=== PATIENT | female | born 1995 | race Caucasian/White ===

== ENCOUNTER 2020-04-20 11:04 | Day surgery (SDC) | payer OTHER ==
[~2020-04-20] VITALS: Ht 170.2 cm; Wt 98.8 kg
--- NOTE | 2020-04-20 11:45 | NUR ---
PT AMBULATORY TO ROOM 15 W/ C/O PELVIC ABD PAIN STARTED TODAY AT 0400. PT ALSO STATES SHE HAD R FLANK PAIN YESTERDAY. PT NOTED TO HAVE LLQ ABD PAIN W/ PALPATION. +NAUSEA. DENIES EMESIS. PT DENIES ANY URINARY SX. PT RESTING ON GURNEY. NADN. MONITORS APPLIED. ROEL COWAN AT BEDSIDE.
[2020-04-20] MEDS ORDERED: ONDANSETRON 2MG/ML, 2ML ONE ×2 (11:53→18:49)
[2020-04-20] MEDS ORDERED: MORPHINE SULFATE 4 MG/ML, 1ML ONE ×2 (11:53→13:10)
[2020-04-20] MEDS: MORPHINE SULFATE 4 MG/ML, 1ML IVPush PRN ×2 (11:56→13:11)
[2020-04-20] MEDS ORDERED: ONDANSETRON 2MG/ML, 2ML IVPush ONE (12:00)
[2020-04-20] MEDS ORDERED: SODIUM CHLORIDE FLUSH 10ML SYR IVF ONE (12:00)
--- NOTE | 2020-04-20 12:05 | NUR ---
[facility] V[facility]. MEDICATED PER OCT.
[2020-04-20 12:15] LABS: BASOPHILS # (AUTO) 0.02 x10^3/uL (0-0.1); BASOPHILS % (AUTO) 0 % (0-1); EOSINOPHILS # (AUTO) 0.14 x10^3/uL (0-0.4); EOSINOPHILS % (AUTO) 1 % (1-7); LYMPHOCYTES # (AUTO) 2.62 x10^3/uL (1-3.4); LYMPHOCYTES % (AUTO) 16 % (22-44); MD NO; MEAN CORPUSCULAR HEMOGLOBIN 27.3 pg (27.0-34.8); MEAN CORPUSCULAR HGB CONC 33.1 g/dL (32.4-35.8); MEAN CORPUSCULAR VOLUME 82.7 fL (80-100); MEAN PLATELET VOLUME 9.4 fL (7.4-10.4); MONOCYTES # (AUTO) 0.92 x10^3/uL (0.2-0.8); MONOCYTES % (AUTO) 6 % (2-9); NEUTROPHILS # (AUTO) 12.22 x10^3/uL (1.8-6.8); NEUTROPHILS % (AUTO) 77 % (42-75); PLATELET COUNT 327 x10^3/uL (130-400); RED CELL DISTRIBUTION WIDTH 14.9 % (9.6-15.2)
[2020-04-20 12:26] LABS: ALBUMIN 3.8 g/dL (3.4-5.0); ANION GAP 9 mmol/L (5-15); CALCIUM 9.6 mg/dL (8.5-10.1); CHLORIDE 108 mmol/L (98-107)
[2020-04-20 12:31] LABS: ALANINE AMINOTRANSFERASE 20 U/L (12-78); ALKALINE PHOSPHATASE 89 U/L (45-117); BILIRUBIN,TOTAL 0.4 mg/dL (0.2-1.0); CREATININE 0.77 mg/dL (0.55-1.02)
[2020-04-20 12:31] LABS: MICROSCOPIC NOT IND
[2020-04-20] MEDS ORDERED: OMNIPAQUE 350 MG/ML, 100ML BOTTLE ONE (12:45)
--- NOTE | 2020-04-20 13:01 | NUR ---
PT RESTING ON GURNEY. NADN. [place].
--- NOTE | 2020-04-20 13:12 | NUR ---
BREAK RN: PT RTD FROM CT AND REQUESTS PAIN MED. VSS, PT MED NOTED FOR PAIN
--- NOTE | 2020-04-20 13:14 | NUR ---
BREAK RN; CALL LIGHT W/I REACH.
[2020-04-20] MEDS ORDERED: CEFOTETAN PMX 2GM/50ML 50 ML IV ONE (14:00)
--- NOTE | 2020-04-20 14:17 | NUR ---
JANE LESLIE: MARIZA ZULUAGA RN. Addendum: 04/20/20 at 1437 by ANGEL CHARTED BY Emilie CHINO RN
--- NOTE | 2020-04-20 14:20 | NUR ---
CEFOTAN 2MG NOT IN ED [facility] CELL. REPORT CALLED AND FLOOR INFORMED THEY WILL NEED TO ADMIN THE CEFOTAN. Addendum: 04/20/20 at 1437 by ANGEL CHARTED BY Emilie CHAVIS RN
--- NOTE | 2020-04-20 14:34 | NUR ---
YELLOW SLIP SENT TO PHARMACY FOR CEFOTAN PER OCT.
[2020-04-20 14:42] VITALS: BP 141/88
[2020-04-20] MEDS ORDERED: VENL37.58 PO (15:13)
[2020-04-20] MEDS ORDERED: NORE1TAB26 PO (15:14)
[2020-04-20] MEDS ORDERED: ETON68IM3 SUBD (15:16)
[2020-04-20] MEDS ORDERED: VALA10004 PO (15:16)
[2020-04-20] MEDS ORDERED: EPINEPHRINE 1 MG/ML, 1ML ONE (15:36)
[2020-04-20] MEDS ORDERED: BUPIVACAINE/PF 0.5% ONE (15:36)
[2020-04-20] MEDS ORDERED: MIDAZOLAM 1 MG/ML, 2ML ONE (16:30)
[2020-04-20] MEDS ORDERED: FENTANYL PF 250 MCG/5ML ONE (16:32)
[2020-04-20] MEDS ORDERED: CEFOTETAN PMX 2GM/50ML 50 ML ONE (16:34)
[2020-04-20] MEDS ORDERED: PHENYLEPHRINE 10 MG/ML ONE (16:39)
[2020-04-20] MEDS ORDERED: BUPIVACAINE/EPI 0.5% 1:200K SQ ONE (16:42)
[2020-04-20] MEDS ORDERED: ACETAMINOPHEN 325 MG TABLET PO PRN (17:00)
[2020-04-20] MEDS ORDERED: OXYcodone 5 MG/5 ML ORAL.SOL UDC PO PRN (17:00)
[2020-04-20] MEDS ORDERED: LABETALOL 5MG/ML, 20ML IV PRN (17:00)
[2020-04-20] MEDS ORDERED: morphine SULFATE 10 MG/ML, 1ML IVPush PRN (17:00)
[2020-04-20] MEDS ORDERED: HYDROmorphone 1 MG/ML, 1ML INJ IVPush PRN (17:00)
[2020-04-20] MEDS ORDERED: PROMETHAZINE 25 MG/ML, 1ML IVPush PRN (17:00)
[2020-04-20] MEDS ORDERED: HALOPERIDOL 5 MG/ML IV PRN (17:00)
[2020-04-20] MEDS ORDERED: hydrALAzine 20 MG/ML, 1ML IV PRN (17:00)
[2020-04-20] MEDS ORDERED: ROCURONIUM 10MG/ML,5ML ONE (18:49)
[2020-04-20] MEDS ORDERED: PROPOFOL 10 MG/ML, 20ML ONE (18:49)
[2020-04-20] MEDS ORDERED: NEOSTIGMINE 1 MG/ML, 10ML ONE (18:49)
[2020-04-20] MEDS ORDERED: GLYCOPYRROLATE 0.2MG/1ML, 5ML ONE (18:49)
[2020-04-20] MEDS ORDERED: DEXAMETHASONE 4 MG/ML, 1ML ONE (18:49)
[2020-04-20] MEDS ORDERED: KETOROLAC 30 MG/1 ML ONE (18:50)
[2020-04-20] MEDS ORDERED: MEPERIDINE/PF 25MG/ML,1ML ONE ×2 (19:12→19:30)
[2020-04-20] MEDS: MEPERIDINE/PF 25MG/0.5ML IVPush PRN ×2 (19:18→19:34)
[2020-04-20] MEDS ORDERED: FENTANYL PF 100 MCG/2ML ONE (19:21)
[2020-04-20] MEDS ORDERED: HALOPERIDOL 5 MG/ML ONE (19:21)
[2020-04-20] MEDS: FENTANYL PF 100 MCG/2ML IV PRN ×2 (19:22→19:28)
[2020-04-20] MEDS ORDERED: ONDANSETRON 2MG/ML, 2ML IVPush PRN (20:30)
[2020-04-20] MEDS ORDERED: OXYcodone/APAP 5/325MG TABLET PO PRN (20:30)
[2020-04-20] MEDS ORDERED: LORazepam 0.5MG TABLET PO PRN (21:00)
[2020-04-20 23:27] VITALS: BP 122/69
[2020-04-21] MEDS: OXYcodone/APAP 5/325MG TABLET PO PRN ×2 (03:30→08:12)
[2020-04-21 03:33] VITALS: BP 118/78
[2020-04-21 06:53] VITALS: BP 109/63
[2020-04-21] MEDS ORDERED: POLY17PO5 PO (08:38)
[2020-04-21] MEDS ORDERED: OXYC-302 PO (08:38)
== END 2020-04-21 09:54 | disposition home or self-care (01) ==
LOC: ED 13:45 → OUT 13:47 → UNDOADMIN 14:00 → EDIP 14:00 → 4NE 14:34 → EDSTATUS 15:32 → DCLOUNGE 04-21 09:39 → 4NE 04-21 09:39 → UNDODISIN 04-21 09:54 → OUT 04-21 09:54
PROVIDERS: ATTEND Emergency Medicine
DX: K81.0 Acute cholecystitis (principal); Z20.828 Contact with and (suspected) exposure to other viral communicable diseases; K81.1 Chronic cholecystitis; K90.0 Celiac disease; Z79.899 Other long term (current) drug therapy; Z91.018 Allergy to other foods
CPT/HCPCS: 36415; 47562; 74177; 76830; 80053; 81003; 83690; 84703; 85025; 87635; 88304; C1729; J0171; J1100; J1885; J2175; J2250; J2270; J2370; J2405; J2704; J2710; J3010; J3490; Q9967; G0378